=== PATIENT | female | born 1985 | race Caucasian/White ===

== ENCOUNTER → 2016-06-03 | Outpatient (CLI) | payer SELFPAY ==
[2016-06-03 13:51] VITALS: BP 90/72
== END ==
LOC: MHUC 13:23
PROVIDERS: ATTEND Physician Assistant
DX: J45.21 Mild intermittent asthma with (acute) exacerbation (principal); J40 Bronchitis, not specified as acute or chronic
CPT/HCPCS: 99213

== ENCOUNTER 2016-07-17 05:37 | Emergency (ER) | payer SELFPAY ==
[~2016-07-17] VITALS: Ht 152.4 cm; Wt 113.0 kg
[~2016-07-17 05:37] MED LIST: ALBU2.5V12 INH; ALBU8.5H6 IH; ALBU8CC IH; AZIT250T81 PO; CEPH-507 PO; CEPH500T PO; GUAN1TAB; LVF500T PO; METH4TAB27 PO; ONDAN4ODT PO; PRED20TA PO; SULF-221 PO; [UNRECOGNIZED DRUG - OTHER]
--- NOTE | 2016-07-17 05:37 | NUR ---
Pt presents ambulatory to ER with asthma attack. Pt has difficulty speaking. Is coughing, wheezing. Able to answer in short answers. Does say she used her albuterol inhaler before coming. Also says it is out of medicine. Pt admitted to ER room 7.
[2016-07-17] MEDS ORDERED: methylPREDNISolone 125 MG (Solu-MEDROL) VIAL IV STA (05:46)
[2016-07-17] MEDS ORDERED: ALBUTEROL/IPRATROPIUM 3MG-0.5MG/3ML (DUONEB) NEB VIAL INH ONE ×2 (05:49→05:50)
[2016-07-17] MEDS ORDERED: SODIUM CHLORIDE FLUSH 3 ML SYR IV PRN (05:50)
[2016-07-17] MEDS ORDERED: NS IV 500 ML 500 ML IV SCH (05:50)
[2016-07-17] MEDS ORDERED: SODIUM CHLORIDE FLUSH 10 ML SYR IV PRN (05:50)
--- NOTE | 2016-07-17 05:50 | NUR ---
RT in with patient delivering Doeneb nebulizer treatment.
[2016-07-17] MEDS ORDERED: MAGNESIUM 1 GM/100 ML IVPB 100 ML IV SCH (05:55)
--- NOTE | 2016-07-17 06:26 | NUR ---
SPO2 94 on RA. MD ordered 2 vials of Duoneb, BS decreased with wheezing before Tx, decreased wheezing post tx with increased air movement.
[2016-07-17] MEDS ORDERED: IPRA3AMP11 INH (06:37)
[2016-07-17] MEDS ORDERED: PRED20TA PO (06:37)
--- NOTE | 2016-07-17 07:00 | NUR ---
PER DR SEXTON PT TO ONLY RECEIEVE 1 GRAM OF MAGNESIUM IV
--- NOTE | 2016-07-17 07:03 | NUR ---
REPORT TO SHERITA Bella AND SHE ACCEPTED CARE OF PT
[2016-07-17 07:05] VITALS: BP 117/73
== END 2016-07-17 07:06 | disposition home or self-care (01) ==
LOC: ED 05:38
DX: J45.901 Unspecified asthma with (acute) exacerbation (principal); Z59.9 Problem related to housing and economic circumstances, unspecified; Z87.891 Personal history of nicotine dependence
CPT/HCPCS: 94640; 96365; 96375; 99284; J2930; J3475; J7040; 99283